=== PATIENT | male | born 1960 | race Caucasian/White ===

== ENCOUNTER 2017-05-13 05:28 | Day surgery (SDC) | payer OTHER ==
[~2017-05-13] VITALS: Ht 170.2 cm; Wt 74.8 kg
--- NOTE | ~2017-05-13 | O ---
[address] [address] OPERATIVE REPORT Name: VIKI JACKSON Room #: DEP [facility].#: [id number] Admission: 05/13/17 Attend Phys: Oscar Brand MD Discharge: 05/13/17 Date of : 58 Report #: [id number] THIS REPORT FOR: //name// CC: Tavon Handy Brand DATE OF SERVICE: 05/13/2017 SERVICE: Orthopedics. FACILITY: [facility] SURGEON: Oscar Brand MD SOLE RUFFER: None. PREOPERATIVE DIAGNOSES: 1. Acute left hip injury status post fall. 2. Left hip acetabular labral repair. POSTOPERATIVE DIAGNOSES: 1. Acute left hip injury status post fall. 2. Left hip acetabular labral repair. 3. Focal left hip Cam deformity. 4. Left hip chondromalacia, grade 2, 3 and 4. PROCEDURE: 1. Left hip arthroscopic labral repair. 2. Left hip arthroscopic Cam osteoplasty. 3. Left hip arthroscopic chondroplasty. COMPLICATIONS: None. DRAINS: None. SPECIMENS: None. ANESTHESIA TYPE: General with regional. ESTIMATED BLOOD LOSS: 5 mL DRAINS: None. FINDINGS: 1. Grade 4 chondromalacia over a small area measuring approximately 3 x 8 mm on the femoral head, assessed a grade 4 chondromalacia and grade 2 and [address] [address] OPERATIVE REPORT Name: VIKI JACKSON [id number] Admission: 05/13/17 Attend Phys: Oscar Brand MD Discharge: 05/13/17 Date of : 58 Report #: [id number] chondromalacia more centrally on the femoral head as well over a larger surface area approximately 2 x 2 cm. 2. Frayed labral tear at the 10-11 o'clock position on a standardized right side-adjusted hip. 3. Single NanoTack suture anchor placed. HISTORY AND INDICATIONS: The patient is a 56-year-old gentleman who sustained a fall back in December where he lost his balance and fell. He caught himself awkwardly. At that point, he had persistent progressive pain. Since then, we tried extensive and exhausted conservative measures including rest, activity modification, formal physical therapy for several months and intraarticular injection as well as multiple oral medication options, but none of these options seem to provide him with any satisfactory relief and he was having worsening symptoms in fact by last month, which were affecting him on a day-to-day basis. We discussed surgical measures and he eventually elected to undergo surgical treatment. Risks, benefits, alternatives and indications for surgery were discussed with him in detail risks include but not limited to pain, bleeding, infection, injury to nerves or blood vessels, persistent pain despite surgical intervention, failure of any repairs, reconstructions, progression of any preexisting chondral injury, stiffness, need for further surgery as well as complications related to anesthesia such as stroke, heart attack, pulmonary complications, thromboembolic disease and . Despite these risks, he wished to proceed. PROCEDURE IN DETAIL: After the left lower extremity was correctly identified as the operative extremity, the patient underwent placement of single shot regional nerve block by the Anesthesia team. He was then taken to the operating room and placed supine on operating table and general anesthesia was induced without complications. He was padded appropriately. Prophylactic antibiotics were administered at the appropriate time. Traction boots were applied in bilateral lower extremities. I evaluated the left hip very carefully on fluoroscopy. I did not identify any obvious generalized Cam deformity, but there was a bump that is a possible source of impingement that was noted on dynamic evaluation at the time of arthroscopy. Left leg was then prepped and draped in standard sterile fashion. Time-out procedure was performed. Standard anterolateral viewing portal followed by mid anterior working portal was established. Diagnostic arthroscopy was performed. There was intensive synovitis both in the fovea and then along the perimeter within the capsule. A mid anterior working portal was established as well and then transverse capsulotomy was performed. Shaver was used to resect the synovitis as well as the chondromalacia that was present as detailed the above. There was an area of full-thickness articular cartilage loss on the anterior superior femoral head. There was a loose flap of cartilage that was treated with chondroplasty to resect it to stable borders. I did consider microfracture, but in this patient [address] [address] OPERATIVE REPORT Name: VIKI JACKSON ISIAH Room #: DEP [facility] [place] [place] M.Edyta#: [id number] Admission: 05/13/17 Attend Phys: Oscar Brand MD Discharge: 05/13/17 Date of : 58 Report #: [id number] population with the presence of a more diffuse chondromalacia pattern elsewhere in the hip, I did not think that this was the most appropriate option, therefore treated him with simple chondroplasty and no further work on the cartilage side. Attention was turned towards the labrum where the anterior and anteromedial aspect of the labrum was very normal but anterolaterally, the labrum had tearing in line with the fibers and the labrum was unstable here, so I used the bur to freshen the acetabular rim in this location. I then placed a cerclage suture to provide a compressive force across the frayed labral fibers. This provided a stable labrum at this point and traction was let down. I then very carefully evaluated the femoral head and neck junction throughout and most of the junction was normal. However, there was one area that was focal, very narrow stretch that did correlate with the location of the labral fraying and tearing anterior and anterolaterally. I did a dynamic arthroscopic impingement exam and this appeared to be potentially problematic against the labrum and the acetabular rim cartilage and so a bur was used to perform a Cam osteoplasty in a standard fashion and then the bony debris was lavaged out of the hip and final x-rays were taken and the transverse capsulotomy was closed with #2 Vicryl x 3. Sterile dressing was applied. The patient was awakened from anesthesia and taken to recovery room in a stable condition. There were no complications and all counts were recorded as correct. <ELECTRONICALLY SIGNED> By: Oscar Brand MD 06/02/17 0811 [id number] Oscar Brand MD /nt
[~2017-05-13 05:28] MED LIST: ADULT LOW DOSE81 MG PO; ATORVASTATIN CA40 MG PO; BAYER CHEWABLE81 MG PO; CARVEDILOL6.25 MG PO; CENTRUM SILVER1 EAC4 PO; CEPACOL SORE T1 EAC8 PO; COLACE100 MG PO; COREG3.125 MG PO; EFFIENT10 MG PO; KLONOPIN1 MG PO; LIPITOR 20 MG T20 M1; LIPITOR 20 MG T20 M1 PO; LISINOPRIL5 MG PO; MIRALAX17 GM PO; MOM PO; NITROGLYCERIN0.4 MG SUBLING; NORCO 5-325 TA1 EACH PO; NORVASC10 MG PO; NORVASC5 MG PO; PACERONE 200 M200 M1 PO; PERCOCET PO; PLAVIX 75 MG TA75 M1 PO; RESTORIL15 MG PO; TUMS PO; TYLENOL325 MG PO; ZOFRAN 4 MG ORAL4 MG SUBLING; ZYRTEC10 M2 PO
== END 2017-05-13 18:17 | disposition home or self-care (01) ==
LOC: TBA 05:28 → OR 05:28 → TBA 05:29 → OR 12:02
DX: S73.192A Other sprain of left hip, initial encounter (principal); M25.852 Other specified joint disorders, left hip; M94.252 Chondromalacia, left hip; I11.9 Hypertensive heart disease without heart failure; I25.10 Atherosclerotic heart disease of native coronary artery without angina pectoris; E78.5 Hyperlipidemia, unspecified; K21.9 Gastro-esophageal reflux disease without esophagitis; Z95.1 Presence of aortocoronary bypass graft; Z98.890 Other specified postprocedural states; Z88.0 Allergy status to penicillin; Z79.82 Long term (current) use of aspirin; Z95.5 Presence of coronary angioplasty implant and graft; Z79.899 Other long term (current) drug therapy; Y99.8 Other external cause status; X58.XXXA Exposure to other specified factors, initial encounter; Y93.89 Activity, other specified; Y92.89 Other specified places as the place of occurrence of the external cause